=== PATIENT | female | born 1940 | race Caucasian/White ===

== ENCOUNTER 2018-01-28 16:35 | Observation (INO) | payer OTHER ==
[2018-01-28] MEDS ORDERED: NS 1,000 ML IV ONE (17:03)
[2018-01-28] MEDS ORDERED: ONDANSETRON 4 MG/2 ML VIAL IVP ONE ×2 (17:03→20:02)
--- NOTE | 2018-01-28 17:37 | EDPHY ---
H & P Smoking Status: Former smoker Time Seen by Provider: 01/28/18 17:03 HPI/ROS: CHIEF COMPLAINT: Nausea, vomiting, abdominal pain, weakness HISTORY OF PRESENT ILLNESS: The patient is a 77 y/o female presenting with nausea, vomiting, abdominal pain, and weakness for one week. Onset of vomiting 1 week ago and unable to tolerate any food since then. She has been able to tolerate a small amount of water. Associated with epigastric pain that comes and goes and gradually increasing weakness. Now mainly lying in bed all day. She has associated chills and hiccups. She denies any diarrhea, abnormal stools , fever, or any other associated symptoms. She denies history of ulcers, gallstones, or abdominal surgery. REVIEW OF SYSTEMS: A 10 point review of systems was performed and is negative with the exception of the elements mentioned in the history of present illness. (Amanda Morgan) Past Medical/Surgical History: Hypertension (Amanda Morgan) Social History: at bedside, daughter at bedside, non-smoker, social drinker (Amanda Morgan) Physical Exam: General Appearance: Alert, pleasant Eyes: Pupils equal and round, no conjunctival pallor or injection ENT, Mouth: Mucous membranes moist Neck: Normal inspection Respiratory: Lungs are clear to auscultation Cardiovascular: Regular rate and rhythm Gastrointestinal: Abdomen is soft and non-tender, bowel sounds normal Neurological: A&O, nonfocal exam Skin: Warm and dry, no rash Extremities: Nontender, no pedal edema Psychiatric: Mood and affect normal (Amanda Morgan) Constitutional: Initial Vital Signs Temperature (C) 37.4 C 01/28/18 16:44 Heart Rate 87 01/28/18 16:44 Respiratory Rate 18 01/28/18 16:44 Blood Pressure 184/117 H 01/28/18 16:44 O2 Sat (%) 95 01/28/18 16:44 O2 Delivery Mode Room Air Allergies/Adverse Reactions: No Known Allergies Allergy (Unverified 01/28/18 16:44) Home Medications: Medication Instructions Recorded Cholecalciferol Vit D3 [Vitamin D3 1,000 units PO DAILY 01/28/18 (*)] Herbals/Supplements -Info Only 1 ea PO DAILY 01/28/18 Multivitamins [Multivitamin (*)] 1 each PO DAILY 01/28/18 [place]-3 Fatty Acids [Fish Oil 1000 1,000 mg PO DAILY 01/28/18 mg (*)] Amoxicillin Trihydrate [Amoxil] 1,000 mg PO BID #54 cap 01/29/18 Clarithromycin [Biaxin (*)] 500 mg PO BID #27 tab 01/29/18 Pantoprazole Sodium [Protonix 40mg 40 mg PO BID #27 tab 01/29/18 (*)] Medical Decision Making - Diagnostics EKG Interpretation: EKG interpreted by me reveals normal sinus rhythm, rate 64, no ST/T changes. Interpretation: normal EKG] (Amanda Morgan) ED Course/Re-evaluation: The patient present with a week's history of vomiting, nausea, abdominal pain, and weakness. She is afebrile. She denies history of ulcers, gallstones, or abdominal surgery. Abdominal exam is normal. Plan for ultrasound for gallstone possibility, labs including liver enzymes and metabolic panel, and EKG. Protonix 40 mg IV and Zofran 4 mg IV given. 18 40: Right upper quadrant ultrasound reveals no evidence of cholecystitis or gallstones. Results discussed with the patient. Continues to have nausea. A 2nd dose of Zofran [address] scan of the abdomen pelvis ordered to rule out small-bowel obstruction. CT scan reveals a focal area of inflammation of the left kidney. Urinalysis reveals 3-5 white blood cells, no symptoms of pyelonephritis. I doubt that she has pyelonephritis, given she has no fever, no leukocytosis and no flank pain. A urine culture was sent. Antibiotics not given. The hospitalist service was consulted for admission. The etiology of her epigastric pain and vomiting is unclear. (Amanda Morgan) Differential Diagnosis: Differential diagnosis includes though it is not limited to appendicitis, cholecystitis, diverticulitis, pyelonephritis, bowel perforation, small bowel obstruction. (Amanda Morgan) - Data Points Laboratory Results: Laboratory Results 01/28/18 17:55 01/28/18 17:55 Microbiology Results: MICROBIOLOGY 01/28/18 20:00 Urine,Clean Catch Urine Culture - Preliminary Medications Given: Discontinued Medications Amoxicillin (Amoxicillin) 1,000 mg PO BID EDISON PRN Reason: Protocol Stop: 02/28/18 14:44 Last Admin: 01/29/18 15:03 Dose: 1,000 mg Clarithromycin (Biaxin) 500 mg PO BID EDISON PRN Reason: Protocol Stop: 02/28/18 14:44 Last Admin: 01/29/18 15:03 Dose: 500 mg Enoxaparin Sodium (Lovenox) 40 mg SC DAILY [facility] Stop: 07/28/18 08:59 Last Admin: 01/29/18 10:17 Dose: Not Given Sodium Chloride (Ns) 1,000 mls @ 0 mls/hr IV EDNOW ONE; Wide Open PRN Reason: Protocol Stop: 01/28/18 17:04 Last Admin: 01/28/18 17:54 Dose: 1,000 mls Sodium Chloride (Ns) 1,000 mls @ 100 mls/hr IV CONT EDISON Stop: 07/27/18 22:59 Last Admin: 01/28/18 23:03 Dose: 1,000 mls Ondansetron HCl (Zofran) 4 mg IVP EDNOW ONE Stop: 01/28/18 17:04 Last Admin: 01/28/18 17:55 Dose: 4 mg Ondansetron HCl (Zofran) 4 mg IVP EDNOW ONE Stop: 01/28/18 20:03 Last Admin: 01/28/18 20:07 Dose: 4 mg Pantoprazole Sodium (Protonix) 40 mg IVP EDNOW ONE Stop: 01/28/18 20:27 Last Admin: 01/28/18 20:54 Dose: 40 mg Pantoprazole Sodium (Protonix) 40 mg IVP DAILY [facility] Stop: 07/28/18 08:59 Last Admin: 01/29/18 10:23 Dose: 40 mg Departure - Departure Disposition: [facility] Inpatient Acute Clinical Impression: Epigastric abdominal pain Vomiting Qualifiers: Vomiting type: unspecified Vomiting Intractability: non-intractable Nausea presence: with nausea Qualified Code(s): R11.2 - Nausea with vomiting, unspecified Condition: Fair
[2018-01-28 18:02] LABS: PLATELET COUNT 236 10^3/uL (150-400)
[2018-01-28] MEDS ORDERED: IOPAMIDOL (ISOVUE-300) 100 ML BTL ONE (18:58)
[2018-01-28] MEDS ORDERED: PANTOPRAZOLE SODIUM 40 MG VIAL IVP ONE (20:26)
[2018-01-28] MEDS ORDERED: PROMETHAZINE HCL 25 MG/ML INJ IVP PRN (22:49)
[2018-01-28] MEDS ORDERED: ONDANSETRON 4 MG/2 ML VIAL IVP PRN (22:49)
[2018-01-28] MEDS ORDERED: ACETAMINOPHEN 325 MG TAB PO PRN (22:49)
[2018-01-28] MEDS ORDERED: HYDROmorphONE/DILAUDID 2 MG/ML INJ IVP PRN (22:49)
[2018-01-28] MEDS ORDERED: LORazepam 2 MG/ML INJ IVP PRN (22:49)
[2018-01-28] MEDS ORDERED: NS 1,000 ML IV SCH (23:00)
[2018-01-29] MEDS ORDERED: hydrALAZINE 20 MG/ML VIAL IVP PRN (00:09)
--- NOTE | 2018-01-29 00:12 | PDGENHP ---
History and Physical - Chief Complaint Epigastric abdominal pain, nausea and vomiting - History of Present Illness Source-patient provides history appears reliable. EMR reviewed and case discussed with accepting hospitalist. HPI-this is a pleasant 77-year-old female with past medical history significant for hypertension and hiatal hernia who presents to the emergency department today with complaints of 1 week history of epigastric abdominal pain. Patient reports his be cramping constant. She denies any melena or hematochezia. She has been attempting to treat her abdominal pain with licorice concerned that she might have some peptic ulcer disease and has noted some darkened stools but denies any tarry stools or hematochezia. Patient denies any abdominal distension. She has had some subjective fevers chills and sweats. She has no known sick contacts. She denies any diarrhea. Patient does report a chronic cough over the course of the winter which is unchanged. Patient was previously recommended to be on antacid/PPI however patient is hesitant as she is concerned that it would lead to dependence on the medication. Patient also had been recommended to be on antihypertensives but also has had elected not to take any medications. History Information - Allergies/Home Medication List Allergies/Adverse Reactions: No Known Allergies Allergy (Unverified 01/28/18 16:44) Home Medications: Cholecalciferol Vit D3 [Vitamin D3 (*)] 1,000 units PO DAILY 01/28/18 [Last Taken 01/28/18] Herbals/Supplements -Info Only 1 ea PO DAILY 01/28/18 [Last Taken 01/28/18] Multivitamins [Multivitamin (*)] 1 each PO DAILY 01/28/18 [Last Taken 01/28/18] [place]-3 Fatty Acids [Fish Oil 1000 mg (*)] 1,000 mg PO DAILY 01/28/18 [Last Taken 01/28/18] I have personally reviewed and updated: family history, medical history, social history, surgical history - Past Medical History Additional medical history: HTN, hiatal hernia, reflux - Surgical History Additional surgical history: Patient denies any surgeries. - Family History Additional family history: Mother with history of breast cancer and glioblastoma. Father related to depression - Social History Smoking Status: Former smoker Alcohol Use: Other (Drinks whiskey in the evening while serving) Drug Use: None Additional social history: Patient is lives with her . She is retired. Cor status-DNR. Review of Systems Review of Systems: ROS: 10pt was reviewed & negative except for what was stated in HPI & below Constitutional: Reports: chills, fever, weight loss (Patient thinks maybe up to 3 lb), other (Sweats) EENMT: Reports: other (Patient wears glasses). Denies: blurred vision, nose congestion, sore throat Cardiac: Reports: no symptoms. Denies: edema Respiratory: Reports: cough (Nonproductive. Chronic ongoing since winter season.). Denies: shortness of breath Gastrointestinal: Reports: vomitting, abdominal pain (Epigastric), nausea, other (See HPI). Denies: black stools, abdominal distention, diarrhea Genitourinary: Denies: discharge, dysuria, hematuria Muscolosketal: Denies: back pain, joint pain, muscle pain Skin: Reports: no symptoms Neurological: Reports: no symptoms. Denies: emotional problems, headache, numbness, tingling, weakness Hematologic/Lymphatic: Denies: anemia, easy bruising Physical Exam Physical Exam: Selected Entries 01/28/18 16:44 Blood Pressure Automatic Method Heart Rate 87 Respiratory 18 Rate O2 Sat (%) 95 Temperature (C) 37.4 C Blood Pressure 184/117 H Mean Arterial 139 H Pressure (MAP) O2 Delivery Room Air Mode Temperature Oral Source Temp Pulse Resp BP Pulse Ox 37.5 C 63 16 157/87 H 93 01/28/18 22:08 01/28/18 22:08 01/28/18 22:08 01/28/18 22:08 01/28/18 22:08 Constitutional: no apparent distress, not in pain, other (Patient appears fatigued and acutely ill but nontoxic.) Eyes: PERRL, anicteric sclera, EOMI Ears, Nose, Mouth, Throat: dry mucous membranes, other (No nasal discharge.), No poor dentition Cardiovascular: regular rate and rhythym, other (Slightly distant heart sounds) , No systolic murmur, No edema Peripheral Pulses: 2+: dorsalis-pedis (R), dorsalis-pedis (L) Respiratory: no respiratory distress, no rales or rhonchi, clear to auscultation , No expiratory wheeze Gastrointestinal: soft, non-tender abdomen, no palpable masses, other ( Hypoactive bowel sounds), No tenderness, No distension Genitourinary: no bladder tenderness, No coats in urethra Skin: warm, normal color, no rashes or abrasions Musculoskeletal: full muscle strength, other (Patient moves all extremities while lying in bed. Grossly normal strength.), No generalized weakness Neurologic: AAOx3, sensation intact bilaterally, other (Grossly nonfocal exam.) , No weakness, No facial droop Psychiatric: interacting appropriately, not anxious, not encephalopathic, thought process linear Lab Data & Imaging Review 01/28/18 17:55 01/28/18 17:55 WBC 7.40 10^3/uL (3.80-9.50) 01/28/18 17:55 RBC 5.07 10^6/uL (4.18-5.33) 01/28/18 17:55 Hgb 15.3 g/dL (12.6-16.3) 01/28/18 17:55 Hct 44.0 % (38.0-47.0) 01/28/18 17:55 MCV 86.8 fL (81.5-99.8) 01/28/18 17:55 MCH 30.2 pg (27.9-34.1) 01/28/18 17:55 MCHC 34.8 g/dL (32.4-36.7) 01/28/18 17:55 RDW 13.4 % (11.5-15.2) 01/28/18 17:55 Plt Count 236 10^3/uL (150-400) 01/28/18 17:55 MPV 8.4 fL (8.7-11.7) L 01/28/18 17:55 Neut % (Auto) 82.9 % (39.3-74.2) H 01/28/18 17:55 Lymph % (Auto) 10.9 % (15.0-45.0) L 01/28/18 17:55 [place] % (Auto) 5.1 % (4.5-13.0) 01/28/18 17:55 Eos % (Auto) 0.1 % (0.6-7.6) L 01/28/18 17:55 Baso % (Auto) 0.7 % (0.3-1.7) 01/28/18 17:55 Nucleat RBC Rel Count 0.0 % (0.0-0.2) 01/28/18 17:55 Absolute Neuts (auto) 6.13 10^3/uL (1.70-6.50) 01/28/18 17:55 Absolute Lymphs (auto) 0.81 10^3/uL (1.00-3.00) L 01/28/18 17:55 Absolute Monos (auto) 0.38 10^3/uL (0.30-0.80) 01/28/18 17:55 Absolute Eos (auto) 0.01 10^3/uL (0.03-0.40) L 01/28/18 17:55 Absolute Basos (auto) 0.05 10^3/uL (0.02-0.10) 01/28/18 17:55 Absolute Nucleated RBC 0.00 10^3/uL (0-0.01) 01/28/18 17:55 Immature Gran % 0.3 % (0.0-1.1) 01/28/18 17:55 Immature Gran # 0.02 10^3/uL (0.00-0.10) 01/28/18 17:55 Sodium 136 mEq/L (135-145) 01/28/18 17:55 Potassium 4.3 mEq/L (3.5-5.2) 01/28/18 17:55 Chloride 101 mEq/L (97-110) 01/28/18 17:55 Carbon Dioxide 18 mEq/l (22-31) L 01/28/18 17:55 Anion Gap 17 mEq/L (8-16) H 01/28/18 17:55 BUN 15 mg/dL (7-23) 01/28/18 17:55 Creatinine 0.9 mg/dL (0.6-1.0) 01/28/18 17:55 Estimated GFR > 60 01/28/18 17:55 Glucose 83 mg/dL (70-100) 01/28/18 17:55 Calcium 10.4 mg/dL (8.5-10.4) 01/28/18 17:55 Total Bilirubin 1.0 mg/dL (0.1-1.4) 01/28/18 17:55 Conjugated Bilirubin 0.4 mg/dL (0.0-0.5) 01/28/18 17:55 Unconjugated Bilirubin 0.6 mg/dL (0.0-1.1) 01/28/18 17:55 AST 19 IU/L (14-46) 01/28/18 17:55 ALT 35 IU/L (9-52) 01/28/18 17:55 Alkaline Phosphatase 68 IU/L (38-126) 01/28/18 17:55 Total Protein 7.8 g/dL (6.3-8.2) 01/28/18 17:55 Albumin 4.9 g/dL (3.5-5.0) 01/28/18 17:55 Lipase 91 IU/L (23-300) 01/28/18 17:55 Urine Color YELLOW 01/28/18 20:00 Urine Appearance CLEAR 01/28/18 20:00 Urine pH 5.0 (5.0-7.5) 01/28/18 20:00 Ur Specific [place] > 1.035 (1.002-1.030) H 01/28/18 20:00 Urine Protein NEGATIVE (NEGATIVE) 01/28/18 20:00 Urine Ketones 2+ (NEGATIVE) H 01/28/18 20:00 Urine Blood 1+ (NEGATIVE) H 01/28/18 20:00 Urine Nitrate NEGATIVE (NEGATIVE) 01/28/18 20:00 Urine Bilirubin NEGATIVE (NEGATIVE) 01/28/18 20:00 Urine Urobilinogen NEGATIVE EU (0.2-1.0) 01/28/18 20:00 Ur Leukocyte Esterase NEGATIVE (NEGATIVE) 01/28/18 20:00 Urine RBC 1-3 /hpf (0-3) 01/28/18 20:00 Urine WBC 3-5 /hpf (0-3) H 01/28/18 20:00 Ur Epithelial Cells TRACE /lpf (NONE-1+) 01/28/18 20:00 Urine Glucose NEGATIVE (NEGATIVE) 01/28/18 20:00 Imaging Review: Ultrasound of the Abdomen Limited History: RUQ Pain, possible Cholelithiasis Abdominal pain. Comparison: None. Findings: Gallbladder: No shadowing calculi, wall thickening, or pericholecystic fluid. Common bile duct is 6 mm in diameter which is normal. Liver: Heterogenous in echogenicity without definite focal solid lesions and measures 14 cm in length. Main portal vein is patent. Renal: Right kidney measures 10 x 4 x 4 cm without hydronephrosis. Pancreas: Homogeneous without peripancreatic fluid. Pancreatic tail obscured by bowel gas. Aorta: Atherosclerotic abdominal aorta without aneurysm. Impression: 1. Assess chronic aorta without aneurysm. 2. No cholelithiasis or biliary ductal dilation. CT Scan of the Abdomen and Pelvis (With Contrast) Indication: Epigastric pain, vomiting for one week. Technique: No oral or rectal contrast. 90 mL of Isovue-300 were given intravenously by machine power injection. Multidetector helical CT imaging was performed from the diaphragm to the symphysis pubis. Dose reduction techniques were utilized. Comparison: None. Findings: Minimal decrease in enhancement of the anterosuperior left kidney suggestive of mild striated nephrogram. The kidneys are otherwise normal. No nephrolithiasis, ureteral calculi, or hydroureteronephrosis. No perinephric fluid collection or stranding. A simple 1.5- x 2-cm cyst emanates off the lower pole left kidney. The urinary bladder is normal. The uterus and adnexa are unremarkable. No pneumoperitoneum, free fluid, abscess, lymphadenopathy, or mass. The retrocecal appendix is normal. The bowel pattern is normal. No evidence of obstruction or adynamic ileus. The liver, spleen, pancreas, contracted gallbladder, and adrenal glands are normal. The portal venous system is patent. No biliary dilation. The lung bases are clear. No effusion. The heart size is normal. The abdominal aorta is normal caliber, with mild to moderate calcified plaque. Mild multilevel degenerative disk disease. No compression fracture or bone lesion. Impression: 1. Query left focal pyelonephritis. Please correlate with urinary analysis. No renal abscess, nephrolithiasis, or obstructing ureteral calculus. 2. Normal appendix and bowel pattern. No evidence of perforation, obstruction , or adynamic ileus. 3. No intraabdominal mass, lymphadenopathy, or abscess. Findings discussed with Emergency Department physician, Amanda Morgan M.D., on January 28, 2018 at 1938. EKG additional interpertation: EKG ordered from the ED. I am unable to located at this time. Will continue to look for it as it has not crossed into [employer].. Assessment & Plan Assessment: Epigastric abdominal pain (Acute) - suspect likely gastritis with a previous history of known hiatal hernia versus peptic ulcer disease. At this time patient is without any abdominal pain. She received PPI and antiemetics in the ED. Discussed with the patient use of continued PPI to address her symptoms and likely gastritis. Patient fears that she will become dependent on the medication but admits concerns for development of worsening disease and Aleman' s esophagus. I tried to reassure patient that recommended first line treatment is a PPI. She is amenable to continue while inpatient but will consider after discharge. We will check H. pylori as well. Advised patient she will need to follow up with her PCP for results as these will not return before her discharge. Should patient continue to have persistent symptoms after discharge and appropriate trial treatment with PPI she may consider follow-up with GI on outpatient basis. Ultrasound negative for evidence of cholelithiasis or obstructive process. CT abdomen pelvis with contrast was noted to have striated nephrogram with potential for focal pyelo nephritis. Patient however clinically does not meet signs or symptoms of pyelo and is currently afebrile with a normal WBC count. UA also was not indicative of a full minute infectious process. Will not add any antibiotic therapy at this time. Cultures are pending. Nausea/Vomiting (Acute) - resolved status post PPI and antiemetic. Dehydration-continue with IV fluid resuscitation. Patient still appears to be quite dehydrated. Benign essential hypertension-patient with a previous diagnosis and recommendation for antihypertensives. She has declined since that time. Will leave some hydralazine available p.r.n. For excessive hypertension. She can follow up with her primary care provider for further discussion. FEN - IVF as above. electrolytes monitored and replacement prn. start with clears and advance diet as tolerated to regular. PPX - SCDs. lovenox if patient should stay additional day. COR - DNR/DNI. Dispo - Patient admitted to observation status on the medical floor. Will hydrate and reassess patient symptoms in AM. Likely will be able to discharge.
[2018-01-29 05:25] LABS: PLATELET COUNT 198 10^3/uL (150-400)
[2018-01-29 08:47] VITALS: BP 145/67; PULSE 72; RESP 14; TEMP 97.5; O2SAT 95
[2018-01-29] MEDS ORDERED: ENOXAPARIN 40 MG/0.4 ML SYR SC SCH (09:00)
[2018-01-29] MEDS ORDERED: PANTOPRAZOLE SODIUM 40 MG VIAL IVP SCH (09:00)
--- NOTE | 2018-01-29 13:30 | HOSPPROG ---
Hospitalist Progress Note Assessment/Plan: Patient is a 77-year-old female presented the emergency room with complaints of a week history of epigastric abdominal pain. She has associated constant cramping. She denies any melena hematochezia. She has been attempting to treat her abdominal pain with licorice. Today is my 1st encounter with the patient. Chart reviewed. * epigastric pain most likely caused by H pylori -started her on triple therapy * CT scan notes concern for focal pyelonephritis -she has no signs or symptoms -cultures are pending * dehydration -resolved, eating and drinking well * nausea and vomiting -resolved * benign essential hypertension -she has declined treatment in the past -p.r.n. Hydralazine *Plan: dc home, start triple therapy w close f/u w her PCP Subjective: Jaja is feeling better, is very hesitant to take treatment. Objective: Vital Signs Temp Pulse Resp BP Pulse Ox 36.4 C 72 14 145/67 H 95 01/29/18 08:00 01/29/18 08:00 01/29/18 08:00 01/29/18 08:00 01/29/18 08:00 Laboratory Results 01/29/18 05:02 01/29/18 05:02 01/28/18 01/29/18 01/30/18 05:59 05:59 05:59 Intake Total 1270 700 Output Total 950 Balance 1270 -250 - Physical Exam Constitutional: no apparent distress, appears nourished, not in pain Eyes: PERRL Ears, Nose, Mouth, Throat: hearing normal Cardiovascular: regular rate and rhythym Respiratory: no respiratory distress Gastrointestinal: normoactive bowel sounds Skin: warm Musculoskeletal: full muscle strength Neurologic: AAOx3 Psychiatric: interacting appropriately ICD10 Worksheet Patient Problems: Problems Problem Status Onset Epigastric abdominal pain Acute Vomiting Acute
[2018-01-29] MEDS ORDERED: CLARITHROMYCIN 500 MG TAB PO SCH (14:45)
--- NOTE | 2018-01-29 15:25 | GDS ---
[f rep st] DISCHARGE SUMMARY DISCHARGE DIAGNOSES: 1. Helicobacter pylori, epigastric pain due to this. 2. CT scan notes concern for focal pyelonephritis. 3. Dehydration. 4. Nausea and vomiting. 5. Benign essential hypertension. HISTORY OF PRESENT ILLNESS: Briefly, the patient is a 77-year-old female who presented to the emergency room with complaints of a week of epigastric abdominal pain with associated cramping. She denies any melena, hematochezia. She had been attempting to treat her abdominal pain with licorice. She had a serology test that was positive for the H pylori antibody. She has been initiated on triple therapy for 14 days. In addition, an abdominal ultrasound was performed to further evaluate her pain. This showed no shadowing calculi or wall thickening, or any type of fluid with her gallbladder. She had no biliary ductal dilatation. A CT of the abdomen was performed that showed a query left focal pyelonephritis. She does not have any symptoms. She has no renal abscess, nephrolithiasis, or obstructing ureteral calculus. She has a normal appendix and bowel pattern. She has no intraabdominal mass, lymphadenopathy, or abscess. Today, she will be discharged home and follow up with her primary care provider. HOSPITAL COURSE: 1. H pylori with associated epigastric pain. Will initiate triple therapy prior to discharge. [facility] and they recommended treatment. I reviewed with her the side effects of antibiotic therapy, including Clostridium difficile, and if that she has frequent loose bowel movements to follow up with her primary care provider. 2. CT scan notes a concern for focal pyelonephritis. She has no symptoms. 3. Dehydration, resolved. 4. Nausea and vomiting, eating and drinking well. 5. Benign essential hypertension. She has declined treatment in the past, and does not want treatment. P.r.n. hydralazine was ordered if needed. DISCHARGE CONDITION: Stable. Blood pressure is 145/67, heart rate is 72, respiratory rate is 14, O2 saturation on room air 95%. Temperature is 36.4 Celsius. MEDICATIONS AT DISCHARGE: Please see the EMR. DISCHARGE INSTRUCTIONS: 1. Recommending she continue treatment for 14 days. If she should develop more than 3-5 liquidy stools, to follow up with her primary care provider. 2. If she develops fever, chills, chest pain, or shortness of breath, return to the ER. /[id number]/MODL MTDD
[2018-01-29] MEDS ORDERED: PANTOPRAZOLE SODIUM 40 MG TAB PO SCH (21:00)
--- NOTE | 2018-01-30 08:45 | CPEKG ---
Heart Rate: 64 RR Interval: 938 P-R Interval: 180 QRSD Interval: 98 QT Interval: 412 QTC Interval: 425 P [place]: 71 QRS [place]: -4 T Wave [place]: 45 EKG Severity - NORMAL ECG - EKG Impression: SINUS RHYTHM Electronically Signed By: Amanda Morgan 30-Jan-2018 15:31:07
[2018-01-30] MEDS ORDERED: Herbals/Supplements -Info Only PO SCH (09:00)
[2018-01-30] MEDS ORDERED: OMEGA-3 FATTY ACIDS 1,000 MG CAP PO SCH (09:00)
[2018-01-30] MEDS ORDERED: CHOLECALCIFEROL VIT D3 1,000 UNITS TAB PO SCH (09:00)
[2018-01-30] MEDS ORDERED: MULTIVITAMINS 1 EACH TAB PO SCH (09:00)
== END 2018-01-29 15:58 | disposition home or self-care (01) ==
LOC: F3E 21:35
PROVIDERS: ADMIT Internal Medicine; ATTEND Internal Medicine
DX: N10 Acute pyelonephritis (principal); B96.81 Helicobacter pylori [H. pylori] as the cause of diseases classified elsewhere; R10.13 Epigastric pain; E86.0 Dehydration; R11.2 Nausea with vomiting, unspecified; I10 Essential (primary) hypertension; K44.9 Diaphragmatic hernia without obstruction or gangrene; Z80.3 Family history of malignant neoplasm of breast
CPT/HCPCS: 74177; 76705; 93005; 96361; 96374; 96375; 96376; 99285; G0378; J2405; Q9967; J1650